=== PATIENT | male | born 1965 | race Asian ===

== ENCOUNTER 2018-06-16 13:12 | Day surgery (SDC) | payer BC ==
[2018-06-16] MEDS ORDERED: PROPOFOL 20 ML ×2 (15:06→15:35)
== END 2018-06-16 16:20 | disposition home or self-care (01) ==
LOC: GIL 13:12
DX: Z12.11 Encounter for screening for malignant neoplasm of colon (principal); K64.8 Other hemorrhoids; E78.5 Hyperlipidemia, unspecified; I10 Essential (primary) hypertension
CPT/HCPCS: 45378